=== PATIENT | male | born 1995 | race Caucasian/White ===

== ENCOUNTER 2017-07-28 19:17 | Emergency (ER) | payer SELFPAY ==
[2017-07-28 19:42] VITALS: BP 117/76
--- NOTE | 2017-07-28 19:49 | ED Physician Documentation ---
General Adult - HPI Stated Complaint: left shoulder pain Chief Complaint: General Adult Additional Information: Four months of left shoulder pain and snapping since he slept on hard cot at [facility]. Has been taking 800 mg of ibuprofen and 1000 mg of tylenol once a day. Right handed. Denies injury. No other modifyig factors or associated signs. - ROS CONST: no problems - PAST HX Past History: none Allergies/Adverse Reactions: Allergies Allergy/AdvReac Type Severity Reaction Status Date / Time No Known Allergies Allergy Verified 02/26/16 09:56 Home Medications: Ambulatory Orders Medication Instructions Recorded Cephalexin [Keflex] 500 mg PO Q6H #40 capsule 02/26/16 - SOCIAL HX Smoking History: non-smoker Alcohol Use: occasionally Drug Use: none (denies) - FAMILY HX Family History: No - VITAL SIGNS Vital Signs: Vital Signs Temp Pulse Resp BP Pulse Ox 98.1 F 88 14 117/76 97 07/28/17 19:18 07/28/17 19:18 07/28/17 19:18 07/28/17 19:18 07/28/17 19:18 - REVIEWED ASSESSMENTS Nursing Assessment Reviewed: Yes Vitals Reviewed: Yes General Adult Physical Exam - PHYSICAL EXAM GENERAL APPEARANCE: mild distress EENT: eye inspection normal, ENT inspection normal NECK: normal inspection, other (L trapezius spasm. Palpation reproduces his pain. Neck not tender.) RESPIRATORY: no resp distress BACK: normal inspection SKIN: warm/dry, normal color EXTREMITIES: normal range of motion (brodie shoulders) NEURO: CN's nml as tested, motor nml, sensation nml, cognition normal Discharge Clincal Impression: Muscle strain Referrals: Primary Doctor,No [Primary Care Provider] - 2 Days Additional Instructions: Ice or gentle heat to the sore muscles for 20 minutes of each hour you are awake as long as the muscles are sore. Follow this with gentle motion. Be sure to check your posture several times a day. You can also take 600 mg of ibuprofen every 8 hours with food. Condition: Good Disposition: 01 HOME, SELF-CARE Decision to Admit: NO Decision Time: 19:45
== END 2017-07-28 19:51 | disposition home or self-care (01) ==
LOC: ED 19:17
DX: S46.912A Strain of unspecified muscle, fascia and tendon at shoulder and upper arm level, left arm, initial encounter (principal); Y92.143 Cell of prison as the place of occurrence of the external cause
CPT/HCPCS: 99282

== ENCOUNTER 2017-09-06 20:40 | Emergency (ER) | payer OTHER ==
--- NOTE | 2017-09-06 20:52 | ED Physician Documentation ---
General Adult - HISTORIAN Historian: patient - HPI Stated Complaint: L shoulder pain Chief Complaint: General Adult Onset: days ago Timing: still present Severity: moderate Further Comments: yes (Pt is a 22 yo male with L shoulder pain. This has been a chronic or recurrent problem for several months. Pt was seen here last month and was seen at another hospital where he had L shoulder x-rays that he says didn't show anything.) - ROS CONST: no problems EYES/ENT: none CVS/RESP: none GI/: none MS/SKIN/LYMPH: other (L shoulder pain) NEURO/PSYCH: numbness (transient numbness in L UE) - PAST HX Past History: other (back injury, "torn muscle weight lifting.") Allergies/Adverse Reactions: Allergies Allergy/AdvReac Type Severity Reaction Status Date / Time No Known Allergies Allergy Verified 02/26/16 09:56 Home Medications: Ambulatory Orders Medication Instructions Recorded NK [NK] 07/28/17 - SOCIAL HX Smoking History: cigarettes, chew - FAMILY HX Family History: No - VITAL SIGNS Vital Signs: Vital Signs Temp Pulse Resp BP Pulse Ox 117/76 07/28/17 19:53 - REVIEWED ASSESSMENTS Nursing Assessment Reviewed: Yes Vitals Reviewed: Yes Progress - Progress Progress: Toradol 60 mg IM Sling Rx Flexeril 10 mg po q 8 h prn. d/c instructions Rx Flexeril 10 mg. Take one by mouth every 8 hrs as needed for muscle spasm. Wear sling as much as possible. Iburprofen 200 mg. Take 3 tablets every 8 hrs with food. General Adult Physical Exam - PHYSICAL EXAM GENERAL APPEARANCE: mild distress NECK: normal inspection, supple RESPIRATORY: no resp distress, chest non-tender, breath sounds normal CVS: reg rate & rhythm, heart sounds normal BACK: normal inspection, no CVA tenderness SKIN: warm/dry, normal color EXTREMITIES: other (able to perform rotator cuff manuevers, ? spasm L upper back /trapezius) NEURO: oriented X3, motor nml, sensation nml Discharge Clincal Impression: L shoulder pain Referrals: Primary Doctor,No [Primary Care Provider] - Condition: Good Disposition: 01 HOME, SELF-CARE Decision to Admit: NO Decision Time: 21:12
[2017-09-06] MEDS ORDERED: KETOROLAC TROMETHAMINE 60 MG/2 ML VIAL IM ONE (21:06)
[2017-09-06] MEDS ORDERED: CYCLOBENZAPRINE HCL 5 MG TABLET PO ONE (21:18)
[2017-09-06 21:51] VITALS: BP 127/86
== END 2017-09-06 21:40 | disposition home or self-care (01) ==
LOC: ED 20:40
DX: M25.512 Pain in left shoulder (principal)
CPT/HCPCS: 96372; 99283; J1885

== ENCOUNTER 2017-10-25 18:12 | Emergency (ER) | payer OTHER ==
--- NOTE | 2017-10-25 18:21 | ED Physician Documentation ---
General Adult - HISTORIAN Historian: patient - HPI Stated Complaint: chest pressure (right side) and shortness of air Chief Complaint: Chest Pain Onset: hours (6) Timing: still present Severity: moderate Further Comments: yes (He reports that he woke today at 2pm to prepare for work and noted he "didnt feel good" states he had some right sided chest pressure and he has had some shortness of air. Denies any recent illness and denies any sick contacts. He does report nausea. No vomiting. No fever. He was once told his heart rate needed to be monitored but states he never followed up with this. Denies any high blood pressure or other cardiac issues. Denies any headache. No dizziness.) Last known Well Code/Unknown Code: Unknown - ROS CONST: no problems EYES/ENT: denies: sore throat CVS/RESP: chest pain, shortness of breath. denies: cough GI/: nausea. denies: vomiting, diarrhea NEURO/PSYCH: anxiety (history of anxiety - he once had meds for anxiety ). denies: headache - PAST HX Past History: none Other History: none Surgeries/Procedures: none Immunizations: UTD Allergies/Adverse Reactions: Allergies Allergy/AdvReac Type Severity Reaction Status Date / Time No Known Allergies Allergy Verified 10/25/17 18:40 Home Medications: Ambulatory Orders Medication Instructions Recorded NK [NK] 07/28/17 - SOCIAL HX Smoking History: non-smoker Alcohol Use: none Drug Use: none - FAMILY HX Family History: No - VITAL SIGNS Vital Signs: Vital Signs Temp Pulse Resp BP Pulse Ox 127/86 09/06/17 21:40 - REVIEWED ASSESSMENTS Nursing Assessment Reviewed: Yes Vitals Reviewed: Yes Progress - Progress Progress: 1948: Results discussed and plan. Agreeable DG ED Results Lab/Radiology - Radiology Radiology Impressions: Pa and lateral chest Clinical history :short of breath chest pain Technique pa and lateral upright Findings: The lung otero are clear. I see no hilar or mediastinal mass. There is no pleural effusion or lesion of the bony thorax. Impression: No acute pulmonary disease Electronically signed on Oct 25, 2017 7:21:59 PM CDT by: Daryl Dotson General Adult Physical Exam - PHYSICAL EXAM GENERAL APPEARANCE: no distress EENT: eye inspection normal, ENT inspection normal, papilledema RESPIRATORY: no resp distress, chest non-tender, breath sounds normal CVS: reg rate & rhythm, heart sounds normal, equal pulses, no murmur ABDOMEN: soft, normal bowel sounds, no distension, non-tender BACK: normal inspection SKIN: warm/dry, normal color EXTREMITIES: non-tender, normal range of motion, no evidence of injury, no edema NEURO: oriented X3, CN's nml as tested, motor nml, sensation nml, mood/affect nml, cognition normal Discharge Clincal Impression: Chest pain Qualifiers: Chest pain type: unspecified Qualified Code(s): R07.9 - Chest pain, unspecified Referrals: Primary Doctor,No [Primary Care Provider] - 2 Days Additional Instructions: 1. Hydroxyzine 25 mg take 1 by mouth every 8 hours as needed for anxiety 2. Follow up with PCP for full work up 3. Plenty of fluids 4. Return to ER for any increasing concerns Condition: Stable Disposition: 01 HOME, SELF-CARE Decision to Admit: NO Date of Decison to Admit: 10/25/17 Decision Time: 19:39
[2017-10-25] MEDS ORDERED: 0.9 % SODIUM CHLORIDE 1,000 ML IV ONE (18:41)
[2017-10-25 19:02] LABS: BASOPHILS % 0.5 (0.0-1.5); EOSINOPHILS % 5.1 % (0.0-6.8); MEAN CORPUSCULAR HEMOGLOBIN 30.5 pg (28.0-34.0); MEAN CORPUSCULAR VOLUME 85.7 fl (80.0-100.0); MONOCYTES % 4.6 % (0.0-11.0)
[2017-10-25 19:14] LABS: eGFR (African) > 60; eGFR (Non-African) > 60
--- NOTE | 2017-10-25 19:25 | Diagnostic Imaging Report ---
[facility] [address] [facility] [address] Report Submission Date: Oct 25, 2017 7:21:59 PM CDT Patient Study Name: JOHN BLOOM Date: Oct 25, 2017 6:58:11 PM CDT Modality Type: DX Gender: M Description: CHEST : 89 Institution: [facility] Physician: ANABEL RODRIGUEZ Pa and lateral chest Clinical history :short of breath chest pain Technique pa and lateral upright Findings: The lung otero are clear. I see no hilar or mediastinal mass. There is no pleural effusion or lesion of the bony thorax. Impression: No acute pulmonary disease Electronically signed on Oct 25, 2017 7:21:59 PM CDT by: Daryl CHUA
[2017-10-25] MEDS ORDERED: HYDROXYZINE HCL 25 MG TABLET PO ONE (19:40)
[2017-10-25 20:30] VITALS: BP 122/69
== END 2017-10-25 20:05 | disposition home or self-care (01) ==
LOC: ED 18:12
DX: R07.9 Chest pain, unspecified (principal)
CPT/HCPCS: 71046; 80053; 82550; 82553; 84484; 85025; 93005; J7030; 96365; 99285; S1016

== ENCOUNTER 2017-12-30 19:07 | Emergency (ER) | payer OTHER ==
--- NOTE | 2017-12-30 19:29 | ED Physician Documentation ---
Chest Pain - HISTORIAN Historian: patient - HPI Chief Complaint: Chest Pain Onset: hours (1800) Timing: sudden onset Duration: waxing, waning Last known Well Date: 12/30/17 Last Known Well Time: 18:00 Context: rest (sitting at work) Severity: mild Quality: sharp Chest Pain Radiation: other (left shoulder) Chest Pain Signs/Symptoms: denies: nausea, vomiting, diaphoresis, cool extremities, dyspnea, tachypnea, tachycardia, hypotension, palpitations, weakness Worsened By: nothing Relieved By: nothing Further Comments: yes (22 year old male patient presents with complaint of chest wall pain which started while he was at work at 1800. Radiates to left shoulder. Denies any nausea, vomiting, or diaphoresis. Reviewed family history - no cardiac history on paternal or maternal side per patient; aunt with CABG. Does report increased stress at work.) - ROS CONST: none MS/LYMPH: none GI/: none EYES/ENT: none SKIN/ENDO: none NEURO/PSYCH: none - PAST HX NH risk factors: no pertinent history DVT/PE Risk Factors: none TAD/AAA risk factors: none Neuro deficit: none GI disease: none Lung disease: none Surgeries/Procedures: none Allergies/Adverse Reactions: Allergies Allergy/AdvReac Type Severity Reaction Status Date / Time No Known Allergies Allergy Verified 10/25/17 18:40 Home Medications: Ambulatory Orders Medication Instructions Recorded NK [NK] 07/28/17 - SOCIAL HX Smoking History: cigarettes - FAMILY HX Family HX: denies: CAD under 55, CAD over 55 - VITAL SIGNS Vital Signs: Vital Signs Temp Pulse Resp BP Pulse Ox 122/69 10/25/17 20:24 - REVIEWED ASSESSMENTS Nursing Assessment Reviewed: Yes Vitals Reviewed: Yes Progress - Progress Progress: Reviewed old records. Patient was seen in Er on 10/25 for similar complaints. Was instructed to follow up with PCP or cardiology. Patient has not seen anyone since ER visit. Patient does not have primary care provider. List of primary care providers given to patient. Encouraged patient to establish PCP and make appointment for wellness visit. Medicated for pain with toradol while in ER. EKG - Sr, no acute changes. Monitor with SR, no ectopy. VS stable. - EKG/XRAY/CT EKG: NSR (rate 70, no acute changes. ) Chest Pain Physical Exam - EXAM General Appearance: no acute distress, alert EENT: eye inspection normal, ENT inspection normal, pharynx normal, no signs of dehydration, ANSHU, no nystagmus, TM's nml Respiratory: no resp. distress, chest non-tender, nml breath sounds CVS: reg. rate & rhythm, no murmur, no gallop, no friction rub, pulses full, pulses equal Abdomen: soft, no organomegaly, normal bowel sounds, no abdominal bruit, no distension Skin: normal color, warm/dry, NR, INT, DR Extremities: non-tender, normal range of motion, no evidence of injury, no edema , J, [employer] Neuro: oriented X3, CN's nml as tested, motor nml, sensation nml, mood/affect nml Discharge Clincal Impression: Non-cardiac chest pain Referrals: Primary Doctor,No [Primary Care Provider] - 2 Days Additional Instructions: Rest Tylenol or ibuprofen as needed for discomfort Make an follow Er appointment with your primary care doctor in the next 1-2 days. Return to the ER if you have Chest pain with shortness of breath, nausea and sweating all over. Or pain radiating to jaws or shoulders. Condition: Stable Disposition: 01 HOME, SELF-CARE Decision to Admit: NO Decision Time: 19:56
[2017-12-30] MEDS: KETOROLAC TROMETHAMINE 60 MG/2 ML VIAL IM ONE (20:31)
[2017-12-30 20:41] VITALS: BP 103/64
== END 2017-12-30 20:39 | disposition home or self-care (01) ==
LOC: ED 19:07
DX: R07.89 Other chest pain (principal)
CPT/HCPCS: 93005; J1885; 96372; 99284

== ENCOUNTER 2018-01-31 19:33 | Emergency (ER) | payer OTHER ==
[2018-01-31 19:57] VITALS: BP 114/64
[2018-01-31] MEDS ORDERED: KETOROLAC TROMETHAMINE 60 MG/2 ML VIAL IM ONE (20:19)
[2018-01-31] MEDS ORDERED: CYCLOBENZAPRINE HCL 5 MG TABLET PO ONE (20:24)
[2018-01-31] MEDS ORDERED: ONDANSETRON HCL 4 MG TAB.RAPDIS PO ONE (20:25)
--- NOTE | 2018-01-31 20:31 | ED Physician Documentation ---
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 Has been taking 400 mg of ibuprofen daily. Comes to the ER tonight, from work, because he is tired of BOSE. Says he is nauseated and has lost his appetite. Hasn't been able to breathe easily through his nose for 3 years, and notices no difference since the chemical exposure. No other modifying factors or associated signs. - ROS CONST: no problems - PAST HX Past History: other (TBI) Allergies/Adverse Reactions: Allergies Allergy/AdvReac Type Severity Reaction Status Date / Time No Known Allergies Allergy Verified 01/31/18 19:57 Home Medications: Ambulatory Orders Medication Instructions Recorded NK 07/28/17 - SOCIAL HX Smoking History: other (vap's) - FAMILY HX Family History: No - VITAL SIGNS Vital Signs: Vital Signs Temp Pulse Resp BP Pulse Ox 98.2 F 83 14 114/64 97 01/31/18 19:33 01/31/18 19:33 01/31/18 19:33 01/31/18 19:33 01/31/18 19:33 - REVIEWED ASSESSMENTS Nursing Assessment Reviewed: Yes Vitals Reviewed: Yes ED Results Lab/Radiology - Orders Orders: ED Orders Category Date Time Status Cyclobenzaprine HCl [Flexeril] Med 01/31/18 20:24 Once 10 mg PO NOW ONE Ketorolac Tromethamine [Toradol] Med 01/31/18 20:19 Once 60 mg IM NOW ONE Ondansetron HCl Rapdis [Zofran Odt] Med 01/31/18 20:25 Once 4 mg PO NOW ONE General Adult Physical Exam - PHYSICAL EXAM GENERAL APPEARANCE: no distress EENT: eye inspection normal, ENT inspection normal, other (no pain with palpation facial sinus areas) NECK: normal inspection, supple RESPIRATORY: breath sounds normal CVS: reg rate & rhythm, no murmur BACK: normal inspection SKIN: warm/dry, normal color EXTREMITIES: normal range of motion (gait and stance), no evidence of injury NEURO: CN's nml as tested, motor nml, sensation nml, cognition normal Discharge Clincal Impression: Headache Referrals: Primary Doctor,No [Primary Care Provider] - 2 Days Condition: Good Disposition: 01 HOME, SELF-CARE Decision to Admit: NO Decision Time: 20:30
== END 2018-01-31 20:37 | disposition home or self-care (01) ==
LOC: ED 19:33
DX: R51 Headache (principal)
CPT/HCPCS: A9270; J1885; 96372; 99283

== ENCOUNTER 2018-03-02 19:46 | Emergency (ER) | payer OTHER ==
--- NOTE | 2018-03-02 20:27 | ED Physician Documentation ---
General Adult - HISTORIAN Historian: patient - HPI Stated Complaint: sob, mult complaints Chief Complaint: General Adult Onset: hours Timing: still present Severity: moderate Further Comments: yes (Pt is a 22 yo male with multiple complaints, including sob, tingling in back of head, L upper arm pain. Pt has normal SpO2 on presentation.) - ROS CONST: no problems EYES/ENT: none CVS/RESP: shortness of breath GI/: none MS/SKIN/LYMPH: none NEURO/PSYCH: tingling (c/o tingling in back of head) - PAST HX Past History: none Allergies/Adverse Reactions: Allergies Allergy/AdvReac Type Severity Reaction Status Date / Time No Known Allergies Allergy Verified 03/02/18 22:11 Home Medications: Ambulatory Orders Medication Instructions Recorded NK 07/28/17 - SOCIAL HX Smoking History: other (e-cigarettes) - FAMILY HX Family History: No - VITAL SIGNS Vital Signs: Vital Signs Temp Pulse Resp BP Pulse Ox 114/64 01/31/18 20:51 - REVIEWED ASSESSMENTS Nursing Assessment Reviewed: Yes Vitals Reviewed: Yes Progress - Progress Progress: Possible anxiety. Continue hydroxyzine as directed. - EKG/XRAY/CT EKG: rhythm (bradycardia, HR=55; otherwise wnl) XRAY: chest (normal) General Adult Physical Exam - PHYSICAL EXAM GENERAL APPEARANCE: mild anxiety EENT: pharynx normal NECK: normal inspection, supple RESPIRATORY: no resp distress, chest non-tender, breath sounds normal CVS: reg rate & rhythm, heart sounds normal ABDOMEN: soft, no organomegaly, normal bowel sounds BACK: normal inspection, no CVA tenderness SKIN: warm/dry, normal color EXTREMITIES: non-tender, normal range of motion, no evidence of injury, no edema NEURO: oriented X3, motor nml, sensation nml, other (mild anxiety) Discharge Clincal Impression: non-cardiac chest pain Referrals: Primary Doctor,No [Primary Care Provider] - Condition: Stable Disposition: 01 HOME, SELF-CARE Decision to Admit: NO Decision Time: 00:24
[2018-03-02 21:19] LABS: eGFR (Non-African) > 60
[2018-03-02 23:41] LABS: TROPONIN T TEST NOT PERFORMED ng/mL (<0.010)
[2018-03-03 02:53] VITALS: BP 98/64
--- NOTE | 2018-03-03 07:01 | Diagnostic Imaging Report ---
JOHNATHAN ROGERS [facility] [address] [facility] [address] [address] Report Submission Date: Mar 02, 2018 9:39:13 PM CDT Patient Study Name: JOHN BLOOM Date: Mar 02, 2018 8:53:33 PM CDT Modality Type: DX Gender: M Description: CHEST : 89 Institution: [facility] Physician: JOHNATHAN ROGERS Chest two views History: Shortness of breath Findings: The lungs are clear. There is no pleural effusion. Heart size and pulmonary vascularity are normal. Osseous structures are unremarkable. Impression: Normal. Electronically signed on Mar 02, 2018 9:39:13 PM CDT by: Dipesh CHUA
[2018-03-03 11:01] LABS: CANNABINOIDS NEGATIVE ng/mL (< 50); METHYLENEDIOXYMETHAMPHETAMINE NEGATIVE ng/mL (<500)
== END 2018-03-03 00:50 | disposition home or self-care (01) ==
LOC: ED 19:46
DX: R07.89 Other chest pain (principal)
CPT/HCPCS: 71046; 80053; 80377; 84484; 85025; 85379; 99284; G0481; S1016

== ENCOUNTER 2018-04-29 14:37 | Emergency (ER) | payer SELFPAY ==
[2018-04-29 14:49] VITALS: BP 131/61
--- NOTE | 2018-04-29 14:59 | ED Physician Documentation ---
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 pain currently /10. worse with pressure or movement. pt denies other symptoms or injury. 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 Where: work Timing: still present Context: direct blow Severity: mild - ROS CONST: no problems. denies: headache, weakness, chills CVS/RESP: denies: chest pain, shortness of breath, cough EYES/ENT: denies: problems with vision, sore throat, nasal drainage, nasal congestion MS/SKIN/LYMPH: denies: weakness, numbness, neck pain, back pain, ankle swelling, leg swelling, rash GI/: denies: nausea, vomiting, abdominal pain, problems urinating - PAST HX Past History: none ("Vapes") Allergies/Adverse Reactions: Allergies Allergy/AdvReac Type Severity Reaction Status Date / Time No Known Allergies Allergy Verified 04/29/18 14:48 Home Medications: Ambulatory Orders Medication Instructions Recorded NK 07/28/17 - SOCIAL HX Smoking History: other ("vapes") - FAMILY HX Family History: none - VITAL SIGNS Vital Signs: Vital Signs Temp Pulse Resp BP Pulse Ox 97.1 F L 79 15 131/61 97 04/29/18 14:46 04/29/18 14:46 04/29/18 14:46 04/29/18 14:46 04/29/18 14:46 - REVIEWED ASSESSMENTS Nursing Assessment Reviewed: Yes Vitals Reviewed: Yes ED Results Lab/Radiology - Radiology Radiology Impressions: Report Submission Date: Apr 29, 2018 3:43:52 PM HOT PIPE GAUGER Patient Study Name: JOHN BLOOM Date: Apr 29, 2018 3:01:28 PM HOT PIPE GAUGER Modality Type: DX Gender: M Description: UPPER EXTREMITY : 89 Institution: Physician: PETROS BEAL Examination: Plain film left hand History: PT STATES PAIN IN FIRST DIGIT OF LEFT HAND X 3 WEEKS AFTER SMASHING IT. PT STATES SWELLING AND DISCOLORING. (Hx) Comparison exams: None available Findings: 3 views of the left hand demonstrate normal cortical margins. Specifically, 1st digit without cortical irregularity. No fracture. No dislocation. No soft tissue abnormality. Impression: No acute osseous abnormality Electronically signed on Apr 29, 2018 3:43:52 PM HOT PIPE GAUGER by: Liam Randolph - Orders Orders: ED Orders Category Date Time Status XR HAND [HAND 3 VIEWS OR MORE] [RAD] Stat Exams 04/29/18 Ordered Head Injury Physical Exam - Physical Exam General Appearance: no acute distress, alert Head: non-tender, no swelling, no obvious injury Neck: non-tender, trachea midline Nexus Criteria: Nexus criteria neg Eyes: ANSHU, EOMI, lids & conjunct. nml ENT: nml external inspection, pharynx nml, ears nml, nose nml Neuro: alert, oriented x3, cooperative, mood/affect nml Sensorimotor: motor nml, sensation nml Resp/CVS: no resp. distress Abdomen: No: guarding Back: non-tender, painless ROM Skin: normal color, warm/dry, NR, INT, PAL, DR Extremities: gait nml, bony point-tenderness (Left First digit distal tenderness. Mild edema. no ecchymosis. ) - Rachel Coma Score Coma Scale Eye Opening: Spontaneous Coma Scale Verbal: Oriented Coma Scale Motor: Obeys Commands Discharge Clincal Impression: Contusion Qualifiers: Encounter type: initial encounter Contusion area: finger Finger: thumb Damage to nail status: without damage Laterality: left Qualified Code(s): S60.012A - Contusion of left thumb without damage to nail, initial encounter Referrals: Primary Doctor,No [Primary Care Provider] - 2 Days Additional Instructions: Head Injury - HISTORIAN Historian: patient - HPI Stated Complaint: Lt thumb pain Chief Complaint: Upper Extremity Injury Additional Information: 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 pain currently 1/10. worse with pressure or movement. pt denies other symptoms or injury. 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 Where: work Timing: still present Context: direct blow Severity: mild - ROS CONST: no problems. denies: headache, weakness, chills CVS/RESP: denies: chest pain, shortness of breath, cough EYES/ENT: denies: problems with vision, sore throat, nasal drainage, nasal congestion MS/SKIN/LYMPH: denies: weakness, numbness, neck pain, back pain, ankle swelling, leg swelling, rash GI/: denies: nausea, vomiting, abdominal pain, problems urinating - PAST HX Past History: none ("Vapes") Allergies/Adverse Reactions: Allergies Allergy/AdvReac Type Severity Reaction Status Date / Time No Known Allergies Allergy Verified 04/29/18 14:48 Home Medications: Ambulatory Orders Medication Instructions Recorded NK 07/28/17 - SOCIAL HX Smoking History: other ("vapes") - FAMILY HX Family History: none - VITAL SIGNS Vital Signs: Vital Signs Temp Pulse Resp BP Pulse Ox 97.1 F L 79 15 131/61 97 04/29/18 14:46 04/29/18 14:46 04/29/18 14:46 04/29/18 14:46 04/29/18 14:46 - REVIEWED ASSESSMENTS Nursing Assessment Reviewed: Yes Vitals Reviewed: Yes ED Results Lab/Radiology - Orders Orders: ED Orders Category Date Time Status XR HAND [HAND 3 VIEWS OR MORE] [RAD] Stat Exams 04/29/18 Ordered Head Injury Physical Exam - Physical Exam General Appearance: no acute distress, alert Head: non-tender, no swelling, no obvious injury Neck: non-tender, trachea midline Nexus Criteria: Nexus criteria neg Eyes: ANSHU, EOMI, lids & conjunct. nml ENT: nml external inspection, pharynx nml, ears nml, nose nml Neuro: alert, oriented x3, cooperative, mood/affect nml Sensorimotor: motor nml, sensation nml Resp/CVS: no resp. distress Abdomen: No: guarding Back: non-tender, painless ROM Skin: normal color, warm/dry, NR, INT, PAL, DR Extremities: gait nml, bony point-tenderness (Left First digit distal tenderness. Mild edema. no ecchymosis. ) - Winner Coma Score Coma Scale Eye Opening: Spontaneous Coma Scale Verbal: Oriented Coma Scale Motor: Obeys Commands Discharge Referrals: Primary Doctor,No [Primary Care Provider] - 2 Days Additional Instructions: Rest Ice for 20 min intervals several times a day. seek medical care immediately if increased pain, swelling, difficult to wake, difficulty breathing, feeling faint or fainting, increased rash, chest pain, shortness of breath, or fever not controlled by tylenol/motrin or any concern. PLEASE UNDERSTAND THAT THIS IS AN EMERGENCY EVALUATION FOR YOUR COMPLAINT AND BY NATURE IS LIMITED AND NOT A SUBSTITUTE FOR ONGOING MEDICAL CARE. EVEN THOUGH TEST RESULTS AND TREATMENT PLAN WERE EXPLAINED THERE MAY BE A NEED FOR ADDITIONAL TESTING TO FULLY DETERMINE THE EXTENT OF YOUR ILLNESS/INJURY/OR CONCERN SO YOU SHOULD CONTACT AND OR ESTABLISH WITH A PRIMARY CARE PROVIDER (OR REFERRAL DOCTOR IF APPLICABLE) FOR AN APPOINTMENT SOON POSSIBLE Condition: Good Disposition: 01 HOME, SELF-CARE Decision to Admit: NO Rest Ice for 20 min intervals several times a day. seek medical care immediately if increased pain, swelling, difficult to wake, difficulty breathing, feeling faint or fainting, increased rash, chest pain, shortness of breath, or fever not controlled by tylenol/motrin or any concern. PLEASE UNDERSTAND THAT THIS IS AN EMERGENCY EVALUATION FOR YOUR COMPLAINT AND BY NATURE IS LIMITED AND NOT A SUBSTITUTE FOR ONGOING MEDICAL CARE. EVEN THOUGH TEST RESULTS AND TREATMENT PLAN WERE EXPLAINED THERE MAY BE A NEED FOR ADDITIONAL TESTING TO FULLY DETERMINE THE EXTENT OF YOUR ILLNESS/INJURY/OR CONCERN SO YOU SHOULD CONTACT AND OR ESTABLISH WITH A PRIMARY CARE PROVIDER (OR REFERRAL DOCTOR IF APPLICABLE) FOR AN APPOINTMENT SOON POSSIBLE Condition: Good Disposition: HOME, SELF-CARE Decision to Admit: NO Date of Decison to Admit: 04/29/18 Decision Time: 15:47
--- NOTE | 2018-04-29 16:48 | Diagnostic Imaging Report ---
MYRON DAVIS [facility] [place] [facility] [address] [facility] [address] [place], [place]. [address] Report Submission Date: Apr 29, 2018 3:51:50 PM FERRYBOAT DECKHAND Patient Study Name: LEANN DUEÑAS Date: Apr 29, 2018 3:00:15 PM FERRYBOAT DECKHAND Modality Type: CT Gender: F Description: CT ABD PELVIS W/ CON : [birth year] Institution: [facility] [place] [facility] Physician: MYRON DAVIS Examination: CT Abdomen/pelvis History: LLQ PAIN X 3 DAYS. HX OF DIVERTICULITIS. RECENT HYSTERECTOMY Comparison exams: None available Technique: CT Abdomen/pelvis without IV protocol. Findings: Liver, spleen, adrenals, pancreas, kidneys and gallbladder are without gross irregularity given exam technique. No gallstone. No suspicious renal calcifications. Ureters are nondilated in their course through the abdomen and pelvis. No central calcifications. Bladder margin within normal limits. Abdominal aorta without aneurysm. Peripheral atherosclerotic disease. Cardiac silhouette is not enlarged. No pericardial effusion. Few scattered prominent loops of small bowel with air-fluid levels. Stool within the large bowel limiting sensitivity. Lower pelvic stranding. No formed fluid collection. Numerous sigmoid diverticula. Osseous structures demonstrate degenerative changes. Lung bases without infiltrate. Few emphysematous blebs. No effusion. Impression: No acute upper abdominal organ inflammatory process. Few prominent loops of small bowel with air-fluid levels - enteritides. Sigmoid diverticula. Lower pelvic mesenteric stranding: could represent sequela from patient's recent hysterectomy however an infectious/inflammatory process cannot be excluded. No formed fluid collection to suggest abscess at this time. No gallstone. No suspicious renal calcifications or abnormal ureteric dilation. No lung base consolidation or effusion. Electronically signed on Apr 29, 2018 3:51:50 PM FERRYBOAT DECKHAND by: Liam CHUA
== END 2018-04-29 15:50 | disposition home or self-care (01) ==
LOC: ED 14:37
DX: S60.012A Contusion of left thumb without damage to nail, initial encounter (principal); W20.8XXA Other cause of strike by thrown, projected or falling object, initial encounter; Y93.89 Activity, other specified; Y99.0 Civilian activity done for income or pay
CPT/HCPCS: 73130; 99282; 99283

== ENCOUNTER 2018-06-12 15:13 | Emergency (ER) | payer SELFPAY ==
--- NOTE | 2018-06-12 15:15 | ED Physician Documentation ---
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 No loss of control of bowel or bladder. NO new injury. Pain is 6/10.) Last known Well Code/Unknown Code: Unknown - ROS CONST: no problems - PAST HX Past History: none Other History: none Surgeries/Procedures: none Immunizations: UTD Allergies/Adverse Reactions: Allergies Allergy/AdvReac Type Severity Reaction Status Date / Time No Known Allergies Allergy Verified 06/12/18 15:51 Home Medications: Ambulatory Orders Medication Instructions Recorded NK 07/28/17 - SOCIAL HX Smoking History: other (Vipe ) Alcohol Use: none Drug Use: none - FAMILY HX Family History: No - VITAL SIGNS Vital Signs: Vital Signs Temp Pulse Resp BP Pulse Ox 131/61 04/29/18 15:50 - REVIEWED ASSESSMENTS Nursing Assessment Reviewed: Yes Vitals Reviewed: Yes Progress - Progress Progress: 1717: results and plan discussed. Pt is agreeable DG ED Results Lab/Radiology - Radiology Radiology Impressions: Examination: Plain film thoracic spine History: CHRONIC MID BACK PAIN, WORSE IN THE LAST FEW DAYS, NO KNOWN INJURY Findings: 3 views of the thoracic spine demonstrate normal height. No anterior compression. No soft tissue abnormalities. Impression: No acute osseous process. Electronically signed on Jun 12, 2018 5:10:42 PM MACHINE OPERATOR PACKAGING by: Liam Randolph Examination: Plain film lumbar spine History: CHRONIC LOW BACK PAIN, WORSE IN THE LAST FEW DAYS, NO KNOWN INJURY Findings: 3 views of the lumbar spine demonstrate normal height. No anterior compression. No soft tissue abnormalities. Impression: No acute osseous process. Electronically signed on Jun 12, 2018 5:11:36 PM MACHINE OPERATOR PACKAGING by: Liam Randolph General Adult Physical Exam - PHYSICAL EXAM GENERAL APPEARANCE: no distress EENT: eye inspection normal, no signs of dehydration NECK: normal inspection RESPIRATORY: no resp distress, chest non-tender, breath sounds normal CVS: reg rate & rhythm, heart sounds normal, equal pulses ABDOMEN: soft, normal bowel sounds, no distension BACK: normal inspection, other (no tenderness. Increased pain with lifting and moving forward ) SKIN: warm/dry, normal color EXTREMITIES: non-tender, normal range of motion, no evidence of injury, no edema NEURO: oriented X3 Discharge Clincal Impression: Back pain Qualifiers: Back pain location: back pain in unspecified location Chronicity: chronic Back pain laterality: unspecified Qualified Code(s): M54.9 - Dorsalgia, unspecified; G89.29 - Other chronic pain Referrals: Primary Doctor,No [Primary Care Provider] - 2 Days Comments: 1. Cyclobenzaprine 10 mg take 1 by mouth every 12 hours pain 2. Ibuprofen 800 mg take 1 by mouth every 12 hours as needed for pain 3. See PCP in 2-4 days 4. Return to ER for any concerns Condition: Stable Disposition: 01 HOME, SELF-CARE Decision to Admit: NO Date of Decison to Admit: 06/12/18 Decision Time: 17:17
[2018-06-12 15:42] VITALS: BP 122/69
[2018-06-12] MEDS ORDERED: KETOROLAC TROMETHAMINE 60 MG/2 ML VIAL IM ONE (15:47)
[2018-06-12] MEDS ORDERED: methylPREDNISolone SOD SUCC 40 MG/ML VIAL IM ONE (15:48)
--- NOTE | 2018-06-12 23:06 | Diagnostic Imaging Report ---
ANABEL RODRIGUEZ [facility] [address] [facility] [address] [address] Report Submission Date: Jun 12, 2018 5:11:36 PM MATHEMATICS FACULTY MEMBER Patient Study Name: JOHN BLOOM Date: Jun 12, 2018 4:12:08 PM MATHEMATICS FACULTY MEMBER Modality Type: DX Gender: M Description: SPINE : 89 Institution: [facility] Physician: ANABEL RODRIGUEZ Examination: Plain film lumbar spine History: CHRONIC LOW BACK PAIN, WORSE IN THE LAST FEW DAYS, NO KNOWN INJURY Findings: 3 views of the lumbar spine demonstrate normal height. No anterior compression. No soft tissue abnormalities. Impression: No acute osseous process. Electronically signed on Jun 12, 2018 5:11:36 PM MATHEMATICS FACULTY MEMBER by: Liam CHUA
--- NOTE | 2018-06-12 23:06 | Diagnostic Imaging Report ---
ANABEL RODRIGUEZ [facility] [address] [facility] [address] [address] Report Submission Date: Jun 12, 2018 5:10:42 PM SENIOR TECHNICAL SPECIALIST Patient Study Name: JOHN BLOOM Date: Jun 12, 2018 4:10:36 PM SENIOR TECHNICAL SPECIALIST Modality Type: DX Gender: M Description: SPINE : [birth year] Institution: [facility] Physician: ANABEL RODRIGUEZ Examination: Plain film thoracic spine History: CHRONIC MID BACK PAIN, WORSE IN THE LAST FEW DAYS, NO KNOWN INJURY Findings: 3 views of the thoracic spine demonstrate normal height. No anterior compression. No soft tissue abnormalities. Impression: No acute osseous process. Electronically signed on Jun 12, 2018 5:10:42 PM SENIOR TECHNICAL SPECIALIST by: Liam CHUA
== END 2018-06-12 17:22 | disposition home or self-care (01) ==
LOC: ED 15:13
DX: M54.9 Dorsalgia, unspecified (principal); G89.29 Other chronic pain
CPT/HCPCS: 72072; 72100; 96372; 99283; 99284; J1885; J2920; J1030

== ENCOUNTER 2018-08-15 14:16 | Emergency (ER) | payer SELFPAY ==
--- NOTE | 2018-08-15 14:50 | ED Physician Documentation ---
Skin Rash - HISTORIAN Historian: patient - HPI Stated Complaint: Abrasion Chief Complaint: Skin Rash Additional Information: Patient is a 23-year-old male that presents to the ER with c/o a 2 week old rash to the left hand "circular" in presentation- he states he had a headache that is gone, c/o nausea that is gone. As we started talking patient is here for a work excuse because he missed the last 2 days of work and was late today. Front/Back of Body, Lg (Schuyler): 1 - tinea corpus Onset: days ago (2 weeks ago) Timing: still present Duration: denies: worse Location: LUE (hand) Quality: itchy Identified Cause?: Yes (dogs) Where: home Context: Medication Exposure: none Context: Food Exposure: none Context: Other Exposure: other (dog) - ROS CONST: none CVS/RESP: none EYES/ENT: none GI/: nausea (resolved) MS/SKIN/LYMPH: none NEURO/PSYCH: headache (resolved) - PAST HX Past History: none Other History: none Surgeries/Procedures: No Immunizations: UTD Allergies/Adverse Reactions: Allergies Allergy/AdvReac Type Severity Reaction Status Date / Time No Known Allergies Allergy Verified 08/15/18 14:36 Home Medications: Ambulatory Orders Medication Instructions Recorded NK 07/28/17 - SOCIAL HX Smoking History: chew, other (vapes) Alcohol Use: rarely Drug Use: none - FAMILY HX Family History: none - VITAL SIGNS Vital Signs: Vital Signs Temp Pulse Resp BP Pulse Ox 98.4 F 74 16 120/77 98 08/15/18 14:17 08/15/18 14:17 08/15/18 14:17 08/15/18 14:17 08/15/18 14:17 Skin Rash Physical Exam - EXAM General Appearance: no acute distress, alert Skin: warm,dry, skin rash (circular with dry rough edges) Location: other (left hand) Character: patchy, urticarial, erythematous Symptoms: warmth, rough texture. No: tenderness, swelling Extremities: non-tender, nml ROM EENT: eyes nml inspection, pharynx nml Neck: trachea midline, no swelling Respiratory: no resp distress, breath sounds normal CVS: reg. rate & rhythm, heart sounds nml Abdomen: non-tender Neuro/Psych: oriented x3, CN's nml as tested, motor nml, sensation nml, mood/affect nml Discharge Clincal Impression: Tinea corporis Referrals: Primary Doctor,No [Primary Care Provider] - 2 Days Additional Instructions: May use an anti-fungal over the counter such as Lotrimin cream twice a day to the affected area Patient here for work excuse Establish care with a provider [facility] [phone] Condition: Good Disposition: 01 HOME, SELF-CARE Decision to Admit: NO Decision Time: 14:58
[2018-08-15 14:57] VITALS: BP 124/77
== END 2018-08-15 14:54 | disposition home or self-care (01) ==
LOC: ED 14:16
DX: B35.4 Tinea corporis (principal)
CPT/HCPCS: 99281

== ENCOUNTER 2019-05-25 20:29 | Emergency (ER) | payer SELFPAY ==
--- NOTE | 2019-05-25 20:38 | ED Physician Documentation ---
General Adult - HISTORIAN Historian: patient - HPI Stated Complaint: mid left back pain x 1 month no injury Chief Complaint: Upper Back Injury/ Pain Onset: other (he hurt his back at 16 and back has hurt since ) Timing: still present Severity: moderate (8/10) Further Comments: yes (He states when he was 16 he was lifting weights and he hurt his back and he has had issues since. Increased back pain for one month no new injury. He did try tylenol today before noon and reports no relief. States pain is 8/10. He has no loss of control of bowel or bladder. He has not had a Dr visit for the pain.) - ROS CONST: no problems - PAST HX Past History: none Allergies/Adverse Reactions: Allergies Allergy/AdvReac Type Severity Reaction Status Date / Time No Known Allergies Allergy Verified 05/25/19 20:41 Home Medications: Ambulatory Orders Medication Instructions Recorded NK 05/25/19 - SOCIAL HX Smoking History: cigarettes Alcohol Use: none Drug Use: none - FAMILY HX Family History: No - VITAL SIGNS Vital Signs: Vital Signs Temp Pulse Resp BP Pulse Ox 118/81 09/16/18 13:15 - REVIEWED ASSESSMENTS Nursing Assessment Reviewed: Yes Vitals Reviewed: Yes General Adult Physical Exam - PHYSICAL EXAM GENERAL APPEARANCE: no distress EENT: eye inspection normal, pharynx normal, no signs of dehydration NECK: normal inspection RESPIRATORY: no resp distress, chest non-tender, breath sounds normal CVS: reg rate & rhythm ABDOMEN: soft BACK: normal inspection, other (muscle tenderness left mid back. No obvious injury - FROM ) SKIN: warm/dry EXTREMITIES: non-tender NEURO: oriented X3 Discharge Clincal Impression: Muscle strain Referrals: Primary Doctor,No [Primary Care Provider] - 2 Days Comments: 1. Continue OTC meds and ice or heat for comfort 2. Flexeril 10 mg take 1 by mouth every 8 hours as needed for muscle pain 3. Follow up with PCP In 2 days for further work up 4. Return to ER for any increased concerns Condition: Stable Disposition: 01 HOME, SELF-CARE Decision to Admit: NO Date of Decison to Admit: 05/25/19 Decision Time: 20:54
[2019-05-25] MEDS ORDERED: KETOROLAC TROMETHAMINE 60 MG/2 ML VIAL IM ONE (20:46)
[2019-05-25] MEDS ORDERED: CYCLOBENZAPRINE HCL 10 MG TABLET PO ONE (20:47)
[2019-05-25 20:49] VITALS: BP 117/73
== END 2019-05-25 21:00 | disposition home or self-care (01) ==
LOC: ED 20:29
DX: S29.012A Strain of muscle and tendon of back wall of thorax, initial encounter (principal); X50.0XXA Overexertion from strenuous movement or load, initial encounter; Y93.B3 Activity, free weights
CPT/HCPCS: 96372; 99283; 99284; J1885